=== PATIENT | female | born 1995 | race Caucasian/White ===

== ENCOUNTER → 2021-12-08 10:42 | Outpatient (BNVA) | payer SELFPAY | PROVIDERS: Family Provider Family Medicine; PCP Family Medicine; Visit Provider Nurse Practitioner Family | DX: Z20.822 Contact with and (suspected) exposure to COVID-19 (principal) | CPT/HCPCS: 87635 ==

== ENCOUNTER 2022-05-29 15:11 | Emergency (ER) | payer MEDICAID, SELFPAY ==
[2022-05-29 15:21] VITALS: BP 161/87; PULSE 89; RESP 15; O2SAT 98
[2022-05-29 15:30] VITALS: PULSE 87; O2SAT 99
[2022-05-29 15:35] LABS: Basophils % 0.4 %; Eosinophils # 0.1 10^3/uL (0.0-0.8); Eosinophils % 1.5 %; Hematocrit 44.6 % (37.0-47.0); Hemoglobin 15.2 g/dL (11.5-15.3); Lymphocytes # 1.5 10^3/uL (0.8-4.8); Mean Corpuscular HGB Conc 34.1 g/dL (30.0-36.0); Mean Corpuscular Hemoglobin 30.4 pg (28.0-34.0); Mean Corpuscular Volume 89.2 fl (81-99); Mean Platelet Volume 11.1 fL (7.4-10.4); Monocytes # 0.5 10^3/uL (0.2-0.9); Monocytes % 7.3 %; Neutrophils # 5.11 10^3/uL (1.8-7.7); Neutrophils % 69.5 %; Nucleated Red Blood Cells % 0 %; Platelet Count 273 10^3/cmm (130-400); Red Cell Distribution Width 13.6 % (12.1-15.1); White Blood Count 7.4 10^3/uL (4.0-10.0)
[2022-05-29] MEDS: acetaminophen 500 mg Tablet PO (15:47)
[2022-05-29 15:50] LABS: HCG, Serum Qual Negative (Negative)
[2022-05-29 15:55] LABS: Alanine Aminotransferase 15 U/L (0-33); Albumin Level 4.4 g/dL (3.5-5.2); Alkaline Phosphatase 102 IU/L (35-105); Anion Gap 14.7 (5-19); Aspartate Amino Transferase 15 U/L (0-32); Blood Urea Nitrogen 10 mg/dL (6-20); Calcium 9.4 mg/dL (8.5-10.5); Carbon Dioxide 26 mmol/L (22-29); Chloride 103 mmol/L (98-107); Globulin 3.2 g/dL (1.3-4.6); Glomerular Filtration Rate 100.4 mL/min (90-130); Glucose 98 mg/dL (65-115); Lipase 12 U/L (13-60); Osmolality Calculated 289 mOsm/kg (285-295); Potassium 3.7 mmol/L (3.5-5.1); Sodium 140 mmol/L (136-145); Total Bilirubin 0.3 mg/dL (0.15-1.2); Total Protein 7.6 g/dL (6.6-8.7)
--- NOTE | 2022-05-29 16:17 | CTR_ITS ---
PROCEDURE INFORMATION: Exam: CT Lumbar Spine Without Contrast Exam date and time: 05/29/2022 4:47 PM Age: 27 years old Clinical indication: Low back pain; Patient HX: C/O lbp - PT was lying in bed and her son jumped on her stomach; Additional info: Midline lumbar tendreness TECHNIQUE: Imaging protocol: Computed tomography of the lumbar spine without contrast. Radiation optimization: All CT scans at this facility use at least one of these dose optimization techniques: automated exposure control; mA and/or kV adjustment per patient size (includes targeted exams where dose is matched to clinical indication); or iterative reconstruction. COMPARISON: No relevant prior studies available. RADIATION DOSE METRICS: Total DLP (mGy-cm): 1794.6 FINDINGS: Bones/joints: No acute lumbar spine fracture or subluxation. There is a Schmorl's node involving the L3 superior endplate. Minimal multilevel endplate spurring is present. Discs/Spinal canal/Neural foramina: No significant disc protrusion. No severe spinal canal stenosis. No significant neural foraminal narrowing. Soft tissues: Unremarkable. CT/CT lumbar spine wo con* [id number] IMPRESSION: No acute lumbar spine fracture or subluxation. Other findings as above.
--- NOTE | 2022-05-29 16:19 | W.ED.GENADLT ---
HPI - General Adult General: Chief complaint: Back Pain/Injury Stated complaint: back pain Time Seen by Provider: 05/29/22 15:13 History of Present Illness: Patient is a 27-year-old female with history of prior presenting to the emergency with complaints of lumbar back pain. Patient tells me that her 3-year-old child was jumping on her belly earlier around 2:00 and shortly after, patient began having back pain. Patient denies hearing a pop in her back denies any bladder or bowel sensation or numbness in the lower extremity. Patient denies any weakness in lower extremity. Patient tells me that she has midline back pain. Patient denies any prior history of trauma or fall. Patient chronically has a dull back pain but reports this pain is different. Patient denies any fever or chills, immunosuppression, diabetes, or any history IV drug use. Patient reports that she usually has back pain with vaginal bleeding. Patient reports that she is currently on her period. Denies any urinary complaints, diarrhea, melena hematochezia or other abdominal complaints at this time. Patient, patient denies any chest pain, shortness breath, palpitation, lightheadedness, cough, runny nose, or sore throat. Onset: 2 hrs ago Duration:2 hrs Location:home Severity:moderate Associated symptoms: Deny chest pain, dyspnea, nausea, rash, palpitations or vomiting Review of Systems Const: Denies: fever(s) or chills Eyes: Denies: change in vision ENMT: Denies: mouth pain Card: Denies: chest pain or palpitations Resp: Denies: dyspnea or non-productive cough GI: Denies: abdominal pain, nausea, vomiting or diarrhea : Denies: dysuria Musc: Reports: back pain (+midline back pain); Denies: extremity pain Skin/Breast: Denies: rash or new lesions Neuro: Denies: weakness in extremities Psych: Reports: other (Normal mood) Cosme/Lymph: Denies: easy bruising PFSH ED PFSH: Medical History Social History Smoking and tobacco status: current every day smoker Alcohol intake: never Substance/Drug Use: current Physical Exam Const: COMMON NORMALS: alert HENMT: COMMON NORMALS: atraumatic HEAD & SCALP: atraumatic MOUTH: moist mucous membranes not abnormal Eye: COMMON NORMALS: EOMs intact bilaterally and conjunctivae normal CONJUNCTIVA: Yes conjunctivae normal Neck/C-Spine: COMMON NORMALS: full ROM and supple Resp: COMMON NORMALS: normal respiratory effort and clear to auscultation bilaterally AUSCULTATION: clear to auscultation bilaterally Cardio: COMMON NORMALS: regular rate RATE: regular rate GI: COMMON NORMALS: Soft to palpation and non-tender PALPATION: Yes Soft to palpation Back/Pelvis: OTHER: + Midline L3-L4 tenderness to palpation, mild paraspinal L3-L4 tenderness palpation Extremity: COMMON NORMALS: full ROM Neuro: SENSORIUM/ORIENTATION: Yes alert MOTOR EXAM: No Abnormal motor strength present and Other motor observations present (no focal motor deficits) Psych: COMMON NORMALS: speech normal SPEECH: Yes normal speech MOOD & AFFECT: Yes euthymic mood Course Vital Signs: Vital signs: Vital Signs Pulse Rate 80 05/29/22 17:00 Respiratory Rate 15 05/29/22 15:21 Blood Pressure 161/87 05/29/22 17:00 Pulse Oximetry 100 05/29/22 17:00 MDM - General Adult Medical Decision Making 27-year-old female with history of prior presenting to the emergency room with complaints of midline lumbar area tenderness. Exam, patient has mild paraspinal and midline L3-L4 tenderness palpation. No lower extremity weakness or saddle anesthesia. Patient has no no bladder or bowel incontinence. Lab work-up showed white count 7.4. Lab within normal limit. CT lumbar spine showed no focal pathologies. At the present time, do not suspect epidural abscess or spinal cord injury given no focal neurological findings of the lower extremity, no fever, no leukocytosis and no other findings consistent. For pain medication, patient reports significant improvement. UA is consistent with 3+ blood. Patient is currently on her period. UA is negative for any UTI. Patient is now able to ambulate without difficulty. Rx: norflex, tylenol, lidocaine patch, and menthol PRN pain Disposition: Discharge. Patient counseled regarding diagnostic impression, treatment plan. Patient given ED strict return precautions to return for continuation, worsening, or development of new symptoms. Instructed to f/u w/ PCP regarding symptoms today. Patient verbalized understanding. Lab Data : 05/29/22 15:26 05/29/22 15:26 Radiology Impressions Lumbar Spine CT 05/29/22 16:17 IMPRESSION: No acute lumbar spine fracture or subluxation. Other findings as above. Laboratory Results WBC 7.4 10^3/uL (4.0-10.0) 05/29/22 15: RBC 5.00 10^6/uL (4.1-5.3) 05/29/22 15: Hgb 15.2 g/dL (11.5-15.3) 05/29/22 15: Hct 44.6 % (37.0-47.0) 05/29/22 15: MCV 89.2 fl (81-99) 05/29/22 15: MCH 30.4 pg (28.0-34.0) 05/29/22: MCHC 34.1 g/dL (30.0-36.0) 05/29/22 15: RDW 13.6 % (12.1-15.1) 05/29/22 15: Plt Count 273 10^3/cmm (130-400) 05/29/22 15: MPV 11.1 fL (7.4-10.4) H 05/29/22 15: Neut % (Auto) 69.5 % 05/29/22 15: Lymph % (Auto) 21.0 % 05/29/22 15: Johnson % (Auto) 7.3 % 05/29/22: Eos % (Auto) 1.5 % 05/29/22: Baso % (Auto) 0.4 % 05/29/22: Neut # (Auto) 5.11 10^3/uL (1.8-7.7) 05/29/22 15: Lymph # (Auto) 1.5 10^3/uL (0.8-4.8) 05/29/22: Johnson # (Auto) 0.5 10^3/uL (0.2-0.9) 05/29/22 15: Eos # (Auto) 0.1 10^3/uL (0.0-0.8) 05/29/22: Baso # (Auto) 0.0 10^3/uL (0.0-0.1) 05/29/22 15:26 Nucleated RBC % (auto) 0 % 05/29/22 15: Nucleated RBCs # 0.0 /100WBC 05/29/22 15:26 Sodium 140 mmol/L (136-145) 05/29/22 15:26 Potassium 3.7 mmol/L (3.5-5.1) 05/29/22 15:26 Chloride 103 mmol/L (98-107) 05/29/22 15:26 Carbon Dioxide 26 mmol/L (22-29) 05/29/22 15:26 Anion Gap 14.7 (5-19) 05/29/22 15:26 BUN 10 mg/dL (6-20) 05/29/22 15:26 Creatinine 0.7 mg/dL (0.5-0.9) 05/29/22 15:26 GFR Calculation 100.4 mL/min (90-130) 05/29/22 15:26 Glucose 98 mg/dL (65-115) 05/29/22 15:26 Calculated Osmolality 289 mOsm/kg (285-295) 05/29/22 15:26 Calcium 9.4 mg/dL (8.5-10.5) 05/29/22 15:26 Total Bilirubin 0.3 mg/dL (0.15-1.2) 05/29/22 15:26 AST 15 U/L (0-32) 05/29/22 15:26 ALT 15 U/L (0-33) 05/29/22 15:26 Alkaline Phosphatase 102 IU/L (35-105) 05/29/22 15:26 Total Protein 7.6 g/dL (6.6-8.7) 05/29/22 15:26 Albumin 4.4 g/dL (3.5-5.2) 05/29/22 15:26 Globulin 3.2 g/dL (1.3-4.6) 05/29/22 15: Lipase 12 U/L (13-60) L 05/29/22 15:26 HCG, Qual Negative (Negative) 05/29/22 15:26 Urine Color Red (Yellow) 05/29/22 17:35 Urine Appearance Bloody (CLEAR) A 05/29/22 17:35 Urine pH 8 (5-7) H 05/29/22 17:35 Ur Specific [place] 1.015 (1.005-1.030) 05/29/22 17:35 Urine Protein Neg (Negative) 05/29/22 17:35 Urine Glucose (UA) Norm (Normal) 05/29/22 17:35 Urine Ketones Negative (Negative) 05/29/22 17:35 Urine Blood 3+ (Negative) H 05/29/22 17:35 Urine Nitrate Negative (Negative) 05/29/22 17:35 Urine Bilirubin Neg (Negative) 05/29/22 17:35 Prot Sulfosalicylic Acd Negative (Negative) 05/29/22 17:35 Urine Urobilinogen 1 mg/dL (Negative) H 05/29/22 17:35 Ur Leukocyte Esterase Negative (Negative) 05/29/22 17:35 Urine RBC Too numerous to cnt /hpf (0-2) H 05/29/22 17:35 Urine WBC 0-4 /hpf (0-5) H 05/29/22 17:35 Ur Squamous Epith Cells Rare /hpf (0-5) 05/29/22 17:35 Amorphous Sediment Not Reportable 05/29/22 17:35 Urine Bacteria Trace /hpf (NONE) 05/29/22 17:35 Urine Mucus 1+ /hpf 05/29/22 17:35 Imaging Data Other Imaging: Radiologist's impression: [place] [address] CT Scan Report Signed Patient: Anisa Norman Unit #: [id number] : 1995 Age/Sex: 27 / F ADM Date: 05/29/22 Loc: ER Room/Bed: Attending Dr: Ordering Provider/Ordering MD: Asher Gann MD Date of Service: 05/29/22 Procedure(s): CT lumbar spine wo con* [id number] Accession Number(s): [id number] Report Number: [id number] PROCEDURE INFORMATION: Exam: CT Lumbar Spine Without Contrast Exam date and time: 05/29/2022 4:47 PM Age: 27 years old Clinical indication: Low back pain; Patient HX: C/O lbp - PT was lying in bed and her son jumped on her stomach; Additional info: Midline lumbar tendreness TECHNIQUE: Imaging protocol: Computed tomography of the lumbar spine without contrast. Radiation optimization: All CT scans at this facility use at least one of these dose optimization techniques: automated exposure control; mA and/or kV adjustment per patient size (includes targeted exams where dose is matched to clinical indication); or iterative reconstruction. COMPARISON: No relevant prior studies available. RADIATION DOSE METRICS: Total DLP (mGy-cm): 1794.6 FINDINGS: Bones/joints: No acute lumbar spine fracture or subluxation. There is a Schmorl's node involving the L3 superior endplate. Minimal multilevel endplate spurring is present. Discs/Spinal canal/Neural foramina: No significant disc protrusion. No severe spinal canal stenosis. No significant neural foraminal narrowing. Soft tissues: Unremarkable. CT/CT lumbar spine wo con* [id number] IMPRESSION: No acute lumbar spine fracture or subluxation. Other findings as above. ? Dictated By: Virginia Estrada MD Signed By: Virginia Estrada MD Signed Date/Time: 05/29/22 172 DD/ 1647 Discharge Plan Discharge Patient Disposition: Home Clinical Impression: Back pain Condition: Stable Prescriptions: New acetaminophen 500 mg tablet 500 mg PO Q6H PRN (Reason: pain) 5 Days Qty: 20 0RF lidocaine 5 % adhesive patch,medicated 1 patch topical DAILY PRN (Reason: pain) 30 Days Qty: 30 0RF Rx Instructions: leave on most painful area for up to 12 hrs Biofreeze (menthol) 5 % gel 1 ea topical BID PRN (Reason: pain) 10 Days Qty: 1 0RF Discharge Orders: Discharge ED (Routine); Ordered 05/29/22 Ordered By: Asher Gann Referrals: Jordin Boucher MD [Primary Care Provider] - Discharge Diet: Advance as tolerated Discharge Activity: Increase activity as tolerated Patient Instructions: Acute Low Back Pain (ED) Activity Restrictions/Additional Instructions: Please come back to the emergency room to have worsening back pain, if have any problem with urination and bowel movementm if you have any weakness in the legs, numbness in the legs, or if you have any new or concerning complaints. Stand Alone Forms: Work/School Release Coding Level of Care Code ED Jute Bag Clipper for Shimon Fwd Exam Comprehensive
[2022-05-29 17:00] VITALS: BP 161/87; PULSE 80; O2SAT 100
[2022-05-29 17:56] LABS: Urine Appearance Bloody (CLEAR); Urine Color Red (Yellow); pH Urine 8 (5-7)
[2022-05-29 17:57] LABS: Add Urine Microscopic? YES; Bilirubin Urine Neg (Negative); Blood Urine 3+ (Negative); Glucose Urine UA Norm (Normal); Ketones Urine Negative (Negative); Leukocyte Esterase Urine Negative (Negative); Nitrate Urine Negative (Negative); Protein Urine Neg (Negative); Specific Gravity, Urine 1.015 (1.005-1.030); Sulfosalicylic Acid Urine Negative (Negative); Urobilinogen Urine 1 mg/dL (Negative)
[2022-05-29 17:58] LABS: RBC Urine TOO NUMEROUS TO CNT /hpf (0-2); WBC Urine 0-4 /hpf (0-5)
[2022-05-29 17:59] LABS: Add Urine Culture? Yes; Bacteria Urine TRACE /hpf; Mucus Urine 1+ /hpf; Squamous Epithelial Cell Urine RARE /hpf (0-5)
[2022-05-29 18:00] VITALS: PULSE 76; O2SAT 95
[2022-05-29 18:25] LABS: Erythrocyte Sedimentation Rate 4 mm/hr (0-15)
[2022-05-29 18:30] LABS: C Reactive Protein 14.7 mg/L (0.0-4.9)
[2022-05-29] MEDS: ketorolac 30 mg/mL INJ IM (18:34)
[2022-05-29] MEDS: morphine 4 mg/mL SDV 1 mL IM (18:34)
[2022-05-29] MEDS: lidocaine 5% Patch 1 PATCH TOPICAL (18:35)
[2022-05-29 18:57] VITALS: BP 146/79; PULSE 88; O2SAT 97
== END 2022-05-29 18:50 | disposition home or self-care (01) ==
PROVIDERS: Emergency Provider Emergency Medicine; PCP Family Medicine
DX: M54.9 Dorsalgia, unspecified (principal); F17.210 Nicotine dependence, cigarettes, uncomplicated
CPT/HCPCS: 72131; 80053; 81001; 83690; 84703; 85025; 85651; 86140; 87086; 96372; 99285; J1885; J2270